=== PATIENT | male | born 1960 | race Caucasian/White ===

== ENCOUNTER 2019-02-20 14:33 | Emergency (ER) | payer OTHER ==
[2019-02-20 14:51] VITALS: BP 121/61; PULSE 65; TEMP 98; BMI 29.9
--- NOTE | 2019-02-20 16:27 | PDOC ---
History of Present Illness <Milly Bassett - Last Filed: 02/20/19 20:59> - General History Source: Patient Exam Limitations: No Limitations - History of Present Illness Initial Comments: 02/20/19 16:02 58 yo male pmh of hep B/hep C (treated, no longer on medication) and HIV (last CD4 10/2018 was 400s with undetectable viral load, sees Dr. Barkley) presents to the ED with 2 days of worsening right lower leg redness, swelling and pain. Pt has chronic bilateral lower limb edema, unknown medical cause. Sees Dr. Higgins, stress test and cardiac cath done 1 month ago was negative. Pt states he fell off of a roof 2 years ago with multiple broken ribs and since then has been unable to sleep flat in bed and noted the beginning of his leg edema. Denies F/C/N/V, recent travel, smoking hx, CP, SOB, abdominal pain. <Emiliano Weeks - Last Filed: 02/21/19 00:12> - General Chief Complaint: Edema Stated Complaint: PAIN Time Seen by Provider: 02/20/19 15:39 Past History <Milly Bassettmoriah - Last Filed: 02/20/19 20:59> - Past Medical History Anemia: No Asthma: No Cancer: No Cardiac Disorders: Yes (endocarditis) CVA: No COPD: No CHF: No Dementia: No Diabetes: No GI Disorders: No Disorders: Yes (BPH) HTN: No Hypercholesterolemia: No Liver Disease: Yes (hep c) Seizures: No Thyroid Disease: No Other medical history: HIV - Surgical History Abdominal Surgery: Yes (hernia) Appendectomy: No Cardiac Surgery: No Cholecystectomy: No Lung Surgery: No Neurologic Surgery: No Orthopedic Surgery: Yes (shoulder tear repair) - Immunization History Immunization Up to Date: Yes - Suicide/Smoking/Psychosocial Hx Smoking History: Unknown if ever smoked Have you smoked in the past 12 months: Yes Number of Cigarettes Smoked Daily: 3 If you are a former smoker, when did you quit?: Approx. 1 month ago. Cigars Per Day: 0 'Breaking Loose' booklet given: 06/05/14 Hx Alcohol Use: No Drug/Substance Use Hx: No Substance Use Type: Heroin (h/o ivdu) Hx Substance Use Treatment: Yes ([facility]) <Emiliano Weeks - Last Filed: 02/21/19 00:12> - Past Medical History Allergies/Adverse Reactions: Allergies Allergy/AdvReac Type Severity Reaction Status Date / Time No Known Allergies Allergy Verified 11/28/11 16:21 Home Medications: Ambulatory Orders Elviteg/Cob/Emtri/Tenof Alafen [Genvoya Tablet] 1 each PO DAILY #30 tablet 09/28 Venlafaxine HCl ER [Effexor Xr -] 150 mg PO DAILY 09/28/18 Albuterol Sulfate Inhaler - [Ventolin HFA Inhaler -] 1 - 2 inh PO QID PRN #1 inhaler 11/09/18 Elviteg/Cob/Emtri/Tenof Alafen [Genvoya (Non-Formulary)] 1 each PO DAILY #30 tablet 12/21/18 Clindamycin [Cleocin -] 600 mg PO Q6H #56 capsule 02/20/19 Clindamycin [Cleocin -] 600 mg PO Q6H #56 capsule 02/20/19 Lactobacillus Combo No.10 [Probiotic] 1 each PO DAILY #14 capsule 02/20/19 Review of Systems - Review of Systems Constitutional: No: Chills, Fever Respiratory: No: Shortness of Breath, Wheezing Cardiac (ROS): Yes: Edema (chronic bilateral pitting). No: Chest Pain ABD/GI: No: Constipated, Diarrhea, Nausea, Vomiting : No: Burning, Dysuria, Flank Pain Musculoskeletal: No: Back Pain Integumentary: Yes: Other (red hot and swollen right lower leg) Neurological: No: Numbness, Paresthesia, Weakness, Ataxia, Dizziness <Emiliano Weeks - Last Filed: 02/21/19 00:12> *Physical Exam - Vital Signs Last Vital Signs Temp Pulse Resp BP Pulse Ox 98 F 65 20 121/61 99 02/20/19 14:47 02/20/19 14:47 02/20/19 14:47 02/20/19 14:47 02/20/19 14:47 <Milly Bassett - Last Filed: 02/20/19 20:59> - Vital Signs Last Vital Signs Temp Pulse Resp BP Pulse Ox 98 F 65 20 121/61 99 02/20/19 14:47 02/20/19 14:47 02/20/19 14:47 02/20/19 14:47 02/20/19 14:47 - Physical Exam General Appearance: Yes: Nourished, Appropriately Dressed. No: Apparent Distress HEENT: positive: EOMI Neck: positive: Supple. negative: Carotid bruit Respiratory/Chest: positive: Lungs Clear, Normal Breath Sounds. negative: Accessory Muscle Use, Crackles, Rales, Rhonchi, Stridor, Wheezing Cardiovascular: positive: Regular Rhythm, Regular Rate Vascular Pulses: Dorsalis-Pedis (R): 3+, Doralis-Pedis (L): 3+ Gastrointestinal/Abdominal: positive: Flat, Soft. negative: Pulsatile Mass, Distended, Guarding, Rebound, Tenderness Lymphatic: negative: Adenopathy Musculoskeletal: negative: CVA Tenderness Extremity: positive: Normal Capillary Refill, Normal Range of Motion, Swelling, Erythema, Inflammation. negative: Calf Tenderness <Emiliano Weeks - Last Filed: 02/21/19 00:12> ED Treatment Course - LABORATORY CBC & Chemistry Diagram: 02/20/19 18:14 02/20/19 18:14 - ADDITIONAL ORDERS Additional order review: Laboratory Results 02/20/19 18:14 Sodium 138 Potassium 4.3 Chloride 102 Carbon Dioxide 32 Anion Gap 5 L BUN 19 H Creatinine 1.2 Creat Clearance w eGFR 61.76 Random Glucose 91 Calcium 8.8 Total Bilirubin 0.4 AST 21 ALT 24 Alkaline Phosphatase 104 Total Protein 7.5 Albumin 3.2 L 02/20/19 18:14 RBC 3.72 L MCV 91.6 MCHC 34.3 RDW 14.7 MPV 9.0 Neutrophils % 67.4 Lymphocytes % 15.7 Monocytes % 14.0 H Eosinophils % 2.3 Basophils % 0.6 - Medications Given in the ED: ED Medications Discontinued Medications Generic Name Dose Route Start Last Admin Trade Name Freq PRN Reason Stop Dose Admin Vancomycin HCl 1,500 mg/ 500 mls @ 250 mls/hr 02/20/19 18:37 02/20/19 19:00 Dextrose IVPB 02/20/19 20:36 250 mls/hr ONCE ONE Administration <Milly Bassett - Last Filed: 02/20/19 20:59> - LABORATORY CBC & Chemistry Diagram: 02/20/19 18:14 02/20/19 18:14 - RADIOLOGY Radiology Studies Ordered: Category Date Time Status LEG TIB/FIB-RIGHT [RAD] Stat Radiology 02/20/19 15:58 Ordered DUPLEX VASCUL US-1 LEG [US] Stat Ultrasound 02/20/19 15:58 Ordered <Emiliano Weeks - Last Filed: 02/21/19 00:12> Medical Decision Making - Medical Decision Making 02/20/19 20:59 pt signed out pending reeval reviewed notes. initially planned for admit, s/p IV abx for cellulitis in LE, demarcated, post trauma. hospitalist came to see patient, prefers oral abx trial, clinda x 10 d. see note by Dr Jay and team pt more comfortable with plan, as nontoxic, labs and lytes wnl, well appearing otherwise clindamycin and bacid, outpatient followup, strict return precautions including infection 02/20/19 21:00 <Milly Bassett - Last Filed: 02/20/19 20:59> *DC/Admit/Observation/Transfer <Milly Bassett - Last Filed: 02/20/19 20:59> - Discharge Dispostion Decision to Admit order: No <Emiliano Weeks - Last Filed: 02/21/19 00:12> Diagnosis at time of Disposition: Cellulitis Qualifiers: Site of cellulitis: extremity Site of cellulitis of extremity: lower extremity Laterality: right Qualified Code(s): L03.115 - Cellulitis of right lower limb - Discharge Dispostion Disposition: HOME Condition at time of disposition: Stable - Prescriptions Prescriptions: Clindamycin [Cleocin -] 600 mg PO Q6H #56 capsule Clindamycin [Cleocin -] 600 mg PO Q6H #56 capsule Lactobacillus Combo No.10 [Probiotic] 1 each PO DAILY #14 capsule - Referrals Referrals: Martha Barkley, [employer] [Primary Care Provider] - - Patient Instructions Printed Discharge Instructions: DI for Cellulitis -- Adult Additional Instructions: Please see your primary doctor within the next 48 hours for reassessment of your wound. Take the antibiotic as prescribed to you for the next 2 weeks along with over the counter probiotics. Return to the ER immediately for extension of redness passed the marked area, worsening swelling, worsening pain, drainage from the wound, high fevers, numbness/tingling or weakness passed the wound into the right foot. Thank you - Post Discharge Activity
--- NOTE | 2019-02-20 16:34 | PDOC ---
Documentation entered by Denny Weller SCRIBE, acting as scribe for Josefa Vinson MD. Josefa Vinson MD: This documentation has been prepared by the marcelinaeNithin Daniel, SCRIBE, under my direction and personally reviewed by me in its entirety. I confirm that the documentation accurately reflects all work, treatment, procedures, and medical decision making performed by me. Attending Attestation - Resident Resident Name: Emiliano Weeks - ED Attending Attestation I have performed the following: I have examined & evaluated the patient, The case was reviewed & discussed with the resident, I agree w/resident's findings & plan, Exceptions are as noted - HPI HPI: 02/20/19 16:19 The patient is a 58 year old male with a past medical history of Hep B, Hep C, and HIV here today for evaluation of right lower leg pain. The patient reports that he hit his right leg on a metal bar two days and his symptoms began. He notes his pain has been getting worse and also notes edema and redness in the right lower leg. Patient denies headache, lightheadedness. Denies fever, chills. Denies chest pain, shortness of breath. Denies nausea, vomiting, diarrhea, abdominal pain. Allergies: [employer] Consultant: Dick Harding - Physicial Exam PE: GENERAL: Awake, alert, and fully oriented, in no acute distress HEAD: No signs of trauma EYES: PERRLA, EOMI, sclera anicteric, conjunctiva clear ENT: Auricles normal inspection, hearing grossly normal, nares patent, oropharynx clear without exudates. Moist mucosa NECK: Normal ROM, supple, no lymphadenopathy, JVD, or masses LUNGS: Breath sounds equal, clear to auscultation bilaterally. No wheezes, and no crackles HEART: Regular rate and rhythm, normal S1 and S2, no murmurs, rubs or gallops ABDOMEN: Soft, nontender, normoactive bowel sounds. No guarding, no rebound. No masses EXTREMITIES: Normal range of motion. 3+ pitting edema to BLE, +trace erythema to LLE. +Significant erythema to RLE, circumferential, +warmth and tenderness. No crepitus. Remainder of extremities with no clubbing or cyanosis. No cords. NEUROLOGICAL: Cranial nerves II through XII grossly intact. Normal speech, normal gait. Motor and sensation intact SKIN: Warm, Dry, normal turgor, no rashes or lesions noted. - Medical Decision Making Pt with significant cellulitis to the RLE, history of poor circulation in BLE. Will give IV abx and place on obs, as it is circumferential and rather large.
[2019-02-20 18:33] LABS: BASO % 0.6 % (0-2.0); EOS % 2.3 % (0-4.5); HEMATOCRIT 34.1 % (35.4-49); HEMOGLOBIN 11.7 GM/dL (11.7-16.9); LYMPH % 15.7 % (8-40); MCH 31.4 pg (25.7-33.7); MCHC 34.3 g/dl (32.0-35.9); MEAN CELL VOLUME 91.6 fl (80-96); NEUT % 67.4 % (42.8-82.8); PLATELET COUNT 112 K/MM3 (134-434); RBC 3.72 M/mm3 (4.00-5.60); RDW 14.7 % (11.9-15.9); WHITE BLOOD COUNT 4.5 K/mm3 (4.0-10.0)
[2019-02-20] MEDS ORDERED: VANCOMYCIN HCL 1,500 MG in DEXTROSE 5%-WATER - 500 ML IVPB ONE (18:37)
[2019-02-20] MEDS ORDERED: VANCOMYCIN 1 GRAM (PRE-DOCKED) 1,000 MG/250 ML BAG IVPB ONE (18:45)
[2019-02-20] MEDS ORDERED: VANCOMYCIN 500 MG VIAL (RESTRICTED TO ID ONLY) ONE (18:45)
[2019-02-20 18:57] LABS: ALBUMIN 3.2 g/dl (3.4-5.0); ALK PHOS 104 U/L (45-117); ANION GAP 5 MMOL/L (8-16); BILIRUBIN,TOTAL 0.4 mg/dL (0.2-1); BLOOD UREA NITROGEN 19 mg/dL (7-18); CALCIUM 8.8 mg/dL (8.5-10.1); CHLORIDE 102 mmol/L (98-107); CO2 32 mmol/L (21-32); CREATININE 1.2 mg/dL (0.55-1.3); GLUCOSE,RANDOM 91 mg/dL (74-106); POTASSIUM 4.3 mmol/L (3.5-5.1); SGOT/AST 21 U/L (15-37); SGPT/ALT 24 U/L (13-61); SODIUM 138 mmol/L (136-145); TOT PROT 7.5 g/dl (6.4-8.2)
--- NOTE | 2019-02-20 20:20 | HOSP ---
Subjective - Review of Symptoms Subjective: 58 y/o male patient with hx of HIV 1991, with CD4 > 400 according to him, No AIDS defining illness, recently cathed at [facility] with non-obstructive CAD follows up with Dr. Harding for his cardiology presented with discoloration of his skin, patient is doing well, denied any fever or chills. he wishes to go home and gets PO antibiotics, I have discussed with him the options and he agreed to take PO antibiotics and he informed me that if his leg does not improve in 2 days he will return to be admitted for further management of his cellulitis will start the patient on Clindamycin 450mg q8hrs x 14 days General: No: Chills, Night Sweats, Fatigue, Malaise, Appetite, Other HEENT: No: Head Aches, Visual Changes, Eye Pain, Ear Pain, Dysphasia, Sinus Congestion, Post Nasal Drip, Sore Throat, Other Pulmonary: No: Dyspnea, Cough, Pleuritic Chest Pain, Other Cardiovascular: No: Chest Pain, Palpitations, Orthopnea, Paroxysmal Noc. Dyspnea , Edema, Light Headedness, Other Gastrointestinal: No: Nausea, NOSYM, Vomiting, Abdominal Pain, Diarrhea, Constipation, Melena, Hematochezia, Other Physical Examination Vital Signs: Vital Signs Temperature 98 F 02/20/19 14:47 Pulse Rate 65 02/20/19 14:47 Respiratory Rate 20 02/20/19 14:47 Blood Pressure 121/61 02/20/19 14:47 O2 Sat by Pulse Oximetry (%) 99 02/20/19 14:47 Labs: CBC, BMP 02/20/19 18:14 02/20/19 18:14 Hospitalist Encounter Assessment: patient can be d/c to follow up with primary care, he was instructed to return if there is no resolution of his symptoms after 2-3 days
--- NOTE | 2019-02-21 15:27 | EKG ---
Test Reason : Blood Pressure : / mmHG Vent. Rate : 059 BPM Atrial Rate : 059 BPM P-R Int : 154 ms QRS Dur : 096 ms QT Int : 440 ms P-R-T Axes : 016 022 025 degrees QTc Int : 435 ms SINUS BRADYCARDIA OTHERWISE NORMAL ECG WHEN COMPARED WITH ECG OF 28-SEP-2018 14:38, NO SIGNIFICANT CHANGE WAS FOUND Confirmed by JONATHAN AVINA MD ([id number]) on 02/21/2019 3:27:27 PM Referred By: Confirmed By:JONATHAN AVINA MD
== END 2019-02-20 21:26 | disposition home or self-care (01) ==
LOC: JER 14:33
DX: L03.115 Cellulitis of right lower limb (principal); B19.10 Unspecified viral hepatitis B without hepatic coma; B19.20 Unspecified viral hepatitis C without hepatic coma; N40.0 Benign prostatic hyperplasia without lower urinary tract symptoms; Z21 Asymptomatic human immunodeficiency virus [HIV] infection status
CPT/HCPCS: 36415; 80053; 85025; 87040; 93005; 93010; 96365; 96366; 99281-25

== ENCOUNTER 2019-03-02 15:48 | Emergency (ER) | payer OTHER ==
--- NOTE | 2019-03-02 16:08 | PDOC ---
Rapid Medical Evaluation Time Seen by Provider: 03/02/19 16:07 Medical Evaluation: Allergies Allergy/AdvReac Type Severity Reaction Status Date / Time No Known Allergies Allergy Verified 03/02/19 16:07 03/02/19 16:09 I have performed a brief in-person evaluation of this patient. The patient presents with a chief complaint of: RLE redness and swelling x2 weeks Pertinent physical exam findings: +2 pitting edema b/l. erythema to BLE R>L. On PO clinda. I have ordered the following: doppler, labs, blood cx The patient will proceed to the ED for further evaluation. Discharge Disposition - Diagnosis Cellulitis - Referrals - Patient Instructions - Post Discharge Activity
[2019-03-02 16:11] VITALS: BP 146/63; PULSE 57; TEMP 97.9; BMI 29.8
--- NOTE | 2019-03-02 17:32 | PDOC ---
History of Present Illness - General Chief Complaint: Edema Stated Complaint: SENT BY PCP / RT LEG PAIN Time Seen by Provider: 03/02/19 16:07 - History of Present Illness Initial Comments: 03/02/19 18:21 The patient is a 58 year old male with a history of Hep C, HIV, BPH who presents for evaluation of redness and swelling to the right lower extremity. The patient reports that he was evaluated on 02/20/19 for similar complaints at which time he was diagnosed with a cellulitis. He was treated with 1 dose of iv clindamycin and discharged on PO clindamycin. The patient states that he has been taking his antibiotics on an outpatient basis and was evaluated by his primary care provider today. He notes continued worsening swelling and pain to the right lower extremity and his primary care provider noted minimal improvement in his erythema to that leg prompting his presentation to the ED for further evaluation. He otherwise denies fevers, chills, SOB, chest pain, nausea, vomiting, abdominal pain, or changes with urination or bowel movements. Past History - Past Medical History Allergies/Adverse Reactions: Allergies Allergy/AdvReac Type Severity Reaction Status Date / Time No Known Allergies Allergy Verified 03/02/19 16:07 Home Medications: Ambulatory Orders Elviteg/Cob/Emtri/Tenof Alafen [Genvoya Tablet] 1 each PO DAILY #30 tablet 09/28 Venlafaxine HCl ER [Effexor Xr -] 150 mg PO DAILY 09/28/18 Albuterol Sulfate Inhaler - [Ventolin HFA Inhaler -] 1 - 2 inh PO QID PRN #1 inhaler 11/09/18 Elviteg/Cob/Emtri/Tenof Alafen [Genvoya (Non-Formulary)] 1 each PO DAILY #30 tablet 12/21/18 Clindamycin [Cleocin -] 600 mg PO Q6H #56 capsule 02/20/19 Clindamycin [Cleocin -] 600 mg PO Q6H #56 capsule 02/20/19 Lactobacillus Combo No.10 [Probiotic] 1 each PO DAILY #14 capsule 02/20/19 Clindamycin [Cleocin -] 600 mg PO Q6H #56 capsule 02/21/19 Anemia: No Asthma: No Cancer: No Cardiac Disorders: Yes (endocarditis) CVA: No COPD: No CHF: No Dementia: No Diabetes: No GI Disorders: No Disorders: Yes (BPH) HTN: No Hypercholesterolemia: No Liver Disease: Yes (hep c) Seizures: No Thyroid Disease: No - Surgical History Abdominal Surgery: Yes (hernia) Appendectomy: No Cardiac Surgery: No Cholecystectomy: No Lung Surgery: No Neurologic Surgery: No Orthopedic Surgery: Yes (shoulder tear repair) - Immunization History Immunization Up to Date: Yes - Suicide/Smoking/Psychosocial Hx Smoking History: Former smoker Have you smoked in the past 12 months: No Number of Cigarettes Smoked Daily: 3 If you are a former smoker, when did you quit?: Approx. 1 month ago. Cigars Per Day: 0 Information on smoking cessation initiated: No 'Breaking Loose' booklet given: 06/05/14 Hx Alcohol Use: No Drug/Substance Use Hx: No Substance Use Type: Heroin (h/o ivdu) Hx Substance Use Treatment: Yes ([facility]) Review of Systems - Review of Systems Comments:: 03/02/19 18:30 Constitutional: No fevers, chills, fatigue, malaise HEENT: No Rhinorrhea, nasal congestion, visual changes Cardiovascular: No chest pain, syncope, palpitations, lightheadedness Respiratory: No Cough, SOB, Hemoptysis, Gastrointestinal: No Abdominal pain, Nausea, Vomiting, Constipation, Diarrhea, Melena Genitourinary: No Dysuria, Frequency, Urgency, Hesitancy, Hematuria, Flank pain Musculoskeletal: Swelling and pain to the right lower extremity. No Myalgia, arthralgia Skin: Redness to the right lower extremity. No itching, bruising, pallor Neurologic: No Headache, Dizziness, Numbness, Weakness, or Tingling Psychiatric: No Hallucinations. No SI or HI *Physical Exam - Vital Signs Last Vital Signs Temp Pulse Resp BP Pulse Ox 97.9 F 57 L 18 146/63 100 03/02/19 16:07 03/02/19 16:07 03/02/19 16:07 03/02/19 16:07 03/02/19 16:07 - Physical Exam Comments: 03/02/19 18:53 General Appearance: Nourished. No Apparent Distress HEENT: No Pharyngeal Erythema, Tonsillar Exudate, Tonsillar Erythema Neck: No Cervical Lymphadenopathy Respiratory/Chest: Lungs Clear, Normal Breath Sounds. No Crackles, Rales, Rhonchi, Wheezing Cardiovascular: Regular Rhythm, Regular Rate. No Murmur, Gallops, Rubs Gastrointestinal/Abdominal: Normal Bowel Sounds, Soft. No Guarding, Rebound, Tenderness Musculoskeletal: No CVA Tenderness Extremity: Erythema noted the right lower extremity with 4+ pitting edema and tenderness to palpation. Normal Capillary Refill Integumentary: Normal Color, Dry, Warm Neurologic: Fully Oriented, Alert, Normal Mood/Affect, Normal Response, ED Treatment Course - LABORATORY CBC & Chemistry Diagram: 03/02/19 19:12 03/02/19 19:12 Medical Decision Making - Medical Decision Making 03/02/19 18:57 The patient is a 58 year old male with a history of Hep C, HIV, BPH who presents for evaluation of redness and swelling to the right lower extremity. Differential includes but is not limited to: DVT, Cellulitis, Infectious, Metabolic Derangement. Given the patient's history and physical exam, we will obtain a cbc, cmp, ua, blood cultures, urine cultures, chest plain film, DVT US , to evaluate further. We will continue to monitor and reassess while here in the ED. 03/02/19 21:44 CBC, cmp, UA are unchanged. Chest plain film is unremarkable. DVT US is negative for DVT as read by our radiologist. The patient appears clinically well on exam. It is likely the patient's symptoms are due to a resolving cellulitis with lymphedema to the extremity. We are comfortable discharging the patient home in stable condition to continue his current antibiotic regimen. Patient and family made aware of impression and plan, return precautions discussed including but not limited to worsening pain or symptoms, fevers, or signs of infection, chest pain, respiratory distress, inability to tolerate oral intake, dehydration, syncope, or neurologic changes. The patient is to follow up with PMD and specialist as recommended within 2-3 days, follow up information provided and the patient will call for an appointment. The patient is to take medications as instructed for duration of time and continue with supportive care, avoid triggers and precipitants. Patient is safe for outpatient follow-up. *DC/Admit/Observation/Transfer Diagnosis at time of Disposition: Cellulitis Qualifiers: Site of cellulitis: unspecified site Qualified Code(s): L03.90 - Cellulitis, unspecified - Discharge Dispostion Disposition: HOME Condition at time of disposition: Stable Decision to Admit order: No - Referrals Referrals: Rubia,Martha, [employer] [Primary Care Provider] - - Patient Instructions Printed Discharge Instructions: DI for Cellulitis -- Adult Additional Instructions: 1) Please follow-up with your primary care doctor in the next 2-3 days. Please call tomorrow to schedule a follow up appointment. If you cannot follow up with your doctor within 1 week please return to the Emergency Department for any urgent issues. 2) Your laboratory / imaging results were normal here in the ER. 3) If you have any worsening of symptoms or any other concerns please return to the ER immediately. Return if worsening symptoms including fevers, headache, vomiting, visual or hearing disturbances, abdominal pain, chest pain, shortness of breath, syncope, dehydration, inability to take things by mouth/vomiting, altered mental status, or worsening concerning symptoms. 4) Please continue taking your home medications as directed. Side effects may include upset stomach, abdominal pain, vomiting, or diarrhea. Do not drink alcohol with your medications. - Post Discharge Activity
[2019-03-02 19:38] LABS: BASO % 0.6 % (0-2.0); EOS % 4.5 % (0-4.5); HEMATOCRIT 36.2 % (35.4-49); HEMOGLOBIN 12.1 GM/dL (11.7-16.9); LYMPH % 20.7 % (8-40); MCH 31.2 pg (25.7-33.7); MCHC 33.6 g/dl (32.0-35.9); MEAN CELL VOLUME 92.9 fl (80-96); MEAN PLT VOLUME 8.8 fl (7.5-11.1); MONO % 11.6 % (3.8-10.2); NEUT % 62.6 % (42.8-82.8); PLATELET COUNT 140 K/MM3 (134-434); RDW 15.4 % (11.9-15.9); WHITE BLOOD COUNT 2.9 K/mm3 (4.0-10.0)
[2019-03-02 20:04] LABS: ALBUMIN 3.3 g/dl (3.4-5.0); ALK PHOS 126 U/L (45-117); ANION GAP 6 MMOL/L (8-16); BILIRUBIN,TOTAL 0.5 mg/dL (0.2-1); BLOOD UREA NITROGEN 15 mg/dL (7-18); CALCIUM 8.9 mg/dL (8.5-10.1); CHLORIDE 104 mmol/L (98-107); CO2 30 mmol/L (21-32); CREATININE 1.3 mg/dL (0.55-1.3); GLUCOSE,RANDOM 108 mg/dL (74-106); POTASSIUM 4.3 mmol/L (3.5-5.1); SGOT/AST 22 U/L (15-37); SGPT/ALT 24 U/L (13-61); SODIUM 140 mmol/L (136-145); TOT PROT 7.9 g/dl (6.4-8.2)
--- NOTE | 2019-03-02 20:46 | PDOC ---
Documentation entered by Sanchez Quintana SCRIBE, acting as scribe for Angelina Estrada DO. Angelina Estrada DO: This documentation has been prepared by the Mariano andres Renju, SCRIBE, under my direction and personally reviewed by me in its entirety. I confirm that the documentation accurately reflects all work, treatment, procedures, and medical decision making performed by me. Attending Attestation - Resident Resident Name: TatumDenny - HPI HPI: 03/02/19 19:47 58 year old male with a significant past medical history of HIV, HCV, and BPH who presents to the emergency department for evaluation of right lower extremity edema with redness. Patient was diagnosed with cellulitis on 02/20/19 and was treated with IV clindamycin and discharged on PO clindamycin. Patient prompted to visit ED for further evaluation by PCP due to increasing redness and swelling. Denies chest pain, abdominal pain, shortness of breath, fevers, chills, nausea, vomiting, or changes with urination or bowel movements. - Physicial Exam PE: 03/02/19 19:48 I agree with the resident's physical exam findings. - Medical Decision Making 03/02/19 20:45 58-year-old male complaining of persistent swelling to the right lower extremity currently on antibiotics for cellulitis DVT study is negative Labs were non-concerning Patient advised to follow-up with outpatient wound care and to discuss compression stockings and/or lymphatic massage with his regular physicians
--- NOTE | 2019-03-03 08:28 | EKG ---
Test Reason : Blood Pressure : / mmHG Vent. Rate : 055 BPM Atrial Rate : 055 BPM P-R Int : 154 ms QRS Dur : 104 ms QT Int : 460 ms P-R-T Axes : 007 035 038 degrees QTc Int : 440 ms SINUS BRADYCARDIA OTHERWISE NORMAL ECG WHEN COMPARED WITH ECG OF 20-FEB-2019 17:24, NO SIGNIFICANT CHANGE WAS FOUND Confirmed by PATRICIA STREET MD ([id number]) on 03/03/2019 8:28:31 AM Referred By: Confirmed By:PATRICIA STREET MD
== END 2019-03-02 21:13 | disposition home or self-care (01) ==
LOC: JER 15:48
DX: L03.115 Cellulitis of right lower limb (principal); B18.2 Chronic viral hepatitis C; N40.0 Benign prostatic hyperplasia without lower urinary tract symptoms; Z21 Asymptomatic human immunodeficiency virus [HIV] infection status
CPT/HCPCS: 36415; 71046-TC-FY; 80053; 85025; 87040; 93005; 93010; 93971-TC; 99282-25